=== PATIENT | male | born 1965 | race Two or more races ===

== ENCOUNTER 2022-07-29 11:26 | Emergency (ER) | payer MEDICAID, OTHER ==
[~2022-07-29] VITALS: Ht 172.7 cm; Wt 118.0 kg
[2022-07-29 11:33] VITALS: BP 179/101
[2022-07-29] MEDS ORDERED: ACETAMINOPHEN 325MG TABLET PO NR (12:00)
[2022-07-29 13:52] LABS: BASOPHILS % 0.3 % (0.0-2.0); CLARITY URINE TURBID (CLEAR); COLOR URINE YELLOW (YELLOW); EOSINOPHILS % 3.4 % (0.0-5.0); HEMATOCRIT. 38.5 % (42.0-52.0); HEMOGLOBIN. 13.1 g/dL (14.0-18.0); KETONES URINE NEGATIVE (NEGATIVE); LEUKOCYTE ESTERASE URINE 3+ (NEGATIVE); LYMPHOCYTES % 14.1 % (20.0-50.0); MEAN CORPUSCULAR HEMOGLOBIN 29.3 pg (28.0-32.0); MEAN CORPUSCULAR VOLUME 85.9 fL (80.0-94.0); MEAN PLATELET VOLUME 7.9 fl (7.4-10.4); MONOCYTES % 7.2 % (2.0-8.0); NITRITE URINE POSITIVE (NEGATIVE); OCCULT BLOOD URINE 2+ (NEGATIVE); PLATELET 290 x1000/uL (130-400); PROTEIN URINE 2+ (NEGATIVE); RED BLOOD CELL COUNT 4.48 mill/uL (4.7-6.1); RED CELL DISTRIBUTION WIDTH 14.3 % (11.6-14.6); SPECIFIC GRAVITY URINE 1.024 (1.005-1.030); UROBILINOGEN URINE 0.2 E.U./dL (0.2-1.0)
[2022-07-29 14:02] LABS: CHLORIDE 107 mEq/L (98-107)
[2022-07-29] MEDS ORDERED: CEPHALEXIN 250MG CAPSULE PO NR (14:15)
[2022-07-29] MEDS ORDERED: CEPH500T MT (14:25)
[2022-07-29] MEDS ORDERED: ACET-2708 MT (14:25)
[2022-07-29] MEDS ORDERED: OXYB5TAB17 MT (14:25)
== END 2022-07-29 14:42 | disposition home or self-care (01) ==
LOC: ER 11:26
DX: R33.9 Retention of urine, unspecified (principal); N39.0 Urinary tract infection, site not specified; F17.200 Nicotine dependence, unspecified, uncomplicated
CPT/HCPCS: 36415; 51702; 80048; 81003; 82962; 85025; 87077; 87106; 87186; 99283; 99284